=== PATIENT | male | born 1960 ===

== ENCOUNTER → 2020-08-08 | Day surgery (SDC) | payer OTHER ==
[~2020-08-08] MED LIST: GLIM2TAB7 PO; IV RINGERS,LACTATED 1000ML 1,000 ML IV ONE; IV RINGERS,LACTATED 1000ML 1,000 ML IV SCH; LISI20TA18 PO; METF10007 PO; PROPOFOL 10 MG/ML (20ML) VIAL. IV ONE; RIVA20TA2 PO
[2020-08-08 08:01] VITALS: BP 146/83
--- NOTE | 2020-08-12 10:09 | PATHOLOGY ---
[facility] Accession Number: [id number] . 01 Material submitted: . PART A: sigmoid colon - SIGMOID POLYPS PART B: colon - TRANSVERSE COLON POLYPS. Modifiers: transverse . 01 Clinical history: . POSITIVE FOR COLOGUARD TEST CRC SCREEN COLONOSCOPY . 02 Diagnosis: A. Colon biopsies, sigmoid colon polyps: - Hyperplastic polyps (3). - Mixed hyperplastic and adenomatous polyp (1). . B. Colon biopsies, transverse colon polyps: - Tubular adenomas. . (ERENDIRAM:aleks; 08/11/2020) MBR 08/11/2020 1725 Local . 02 Comment: There is no high-grade dysplasia or evidence of malignancy. (ERENDIRAM:aleks; 08/11/2020) . 02 Electronically signed: . Jesus Leigh MD, Pathologist NPI- [id number] . 01 Gross description: . A. Received in formalin labeled "Rosas, Iván, sigmoid colon polyp further designated by the req as polyps" are multiple fragments of renee-brown soft tissue measuring in aggregate 2.6 x 0.9 x 0.3 cm. The specimen is submitted entirely in A1. . B. Received in formalin labeled "Rosas, Iván transverse colon polyp further designated by the req as polyps" are multiple fragments of renee-brown soft tissue measuring in aggregate 1.9 x 0.6 x 0.3 cm. The specimen is submitted entirely in B1. ([facility]; 08/09/2020) GZA/GZA 08/11/2020 1723 Local . 02 Pathologist provided ICD-10: K63.5, D12.3 . 02 CPT . 231343, 410614 Specimen Comment: A courtesy copy of this report has been sent to [phone], [phone] Specimen Comment: [id number] Specimen Comment: Report sent to / Performed at: 01 [facility] [address] [id number] MD Dov Wilson MD Phone: [phone] Performed at: 02 [facility] [address] [place], [place] [id number] MD Jesus Leigh MD Phone: [phone]
== END | disposition home or self-care (01) ==
LOC: ENDOS 05:51
PROVIDERS: ATTEND Internal Medicine Gastroenterology
DX: R19.5 Other fecal abnormalities (principal); K64.0 First degree hemorrhoids; D12.3 Benign neoplasm of transverse colon; K63.89 Other specified diseases of intestine; I10 Essential (primary) hypertension; E78.00 Pure hypercholesterolemia, unspecified; G47.30 Sleep apnea, unspecified; I48.91 Unspecified atrial fibrillation; K21.9 Gastro-esophageal reflux disease without esophagitis; E11.9 Type 2 diabetes mellitus without complications; Z79.84 Long term (current) use of oral hypoglycemic drugs; Z79.899 Other long term (current) drug therapy; Z98.890 Other specified postprocedural states; Z72.89 Other problems related to lifestyle; Z20.822 Contact with and (suspected) exposure to COVID-19
CPT/HCPCS: 45380; 45385; 87426; 88305; J2704; 45384